=== PATIENT | female | born 1980 | race Two or more races ===

== ENCOUNTER 2021-06-17 10:40 | Outpatient (CLI) | payer OTHER ==
[~2021-06-17 10:40] MED LIST: COLACE100 MG PO; PERCOCET 5/3251 TAB PO
== END 2021-06-17 10:45 | disposition home or self-care (01) ==
LOC: PPH VACUNA 10:40
PROVIDERS: ATTEND Emergency Medicine Pediatric Emergency Medicine
DX: Z23 Encounter for immunization (principal)

== ENCOUNTER 2022-07-30 05:48 | Day surgery (SDC) | payer OTHER ==
[~2022-07-30] VITALS: Ht 167.6 cm; Wt 98.0 kg
[~2022-07-30 05:48] MED LIST changes: +TOPROL XL50 M1 PO
== END 2022-07-30 20:00 | disposition home or self-care (01) ==
LOC: CIR.AMB 05:48
PROVIDERS: ATTEND Surgery
DX: N60.91 Unspecified benign mammary dysplasia of right breast (principal); R92.1 Mammographic calcification found on diagnostic imaging of breast; N60.81 Other benign mammary dysplasias of right breast; Z91.013 Allergy to seafood; Z20.822 Contact with and (suspected) exposure to COVID-19
CPT/HCPCS: 19301; 19281; L8600

== ENCOUNTER 2022-11-28 11:24 | Inpatient (IN) | payer OTHER ==
[~2022-11-28] VITALS: Ht 198.1 cm; Wt 98.9 kg
--- NOTE | 2022-11-28 11:47 | NUR ---
PTE REFIERE QUE TIENE DOLOR PELVICO ANGELIKA
--- NOTE | 2022-11-28 12:54 | NUR ---
SE ORIENTA PTE SOBRE TX A SEGUIR, LA MISMA REFIERE ENTENDER. SE COLECTAN MUESTRAS DE LAB BAJO MEDIDAS ASEPTICAS Y SE ADMINISTRAN MEDS WANDA ORDEN MEDICA. PEND CT Y X-RAY. PTE MANEJADO POR YUE LOWERY
== END 2022-12-01 13:29 | disposition home or self-care (01) | DRG 737 ==
LOC: ER 11:24 → SURH 19:57 → SEC-K 19:57 → SURH 20:13
PROVIDERS: Obstetrics & Gynecology Gynecologic Oncology; ADMIT Internal Medicine; ATTEND Internal Medicine
PROC: BB24YZZ Computerized Tomography (CT Scan) of Bilateral Lungs using Other Contrast (ICD-10-PCS; 2022-11-28)
PROC: BB24ZZZ Computerized Tomography (CT Scan) of Bilateral Lungs (ICD-10-PCS; 2022-11-28)
PROC: BW21YZZ Computerized Tomography (CT Scan) of Abdomen and Pelvis using Other Contrast (ICD-10-PCS; 2022-11-28)
PROC: 0UT90ZZ Resection of Uterus, Open Approach (ICD-10-PCS; 2022-11-29)
PROC: 0DBW0ZZ Excision of Peritoneum, Open Approach (ICD-10-PCS; 2022-11-29)
PROC: 0UT70ZZ Resection of Bilateral Fallopian Tubes, Open Approach (ICD-10-PCS; 2022-11-29)
PROC: 07BD0ZZ Excision of Aortic Lymphatic, Open Approach (ICD-10-PCS; 2022-11-29)
PROC: 07BC0ZZ Excision of Pelvis Lymphatic, Open Approach (ICD-10-PCS; 2022-11-29)
PROC: 0DBU0ZZ Excision of Omentum, Open Approach (ICD-10-PCS; 2022-11-29)
PROC: 3E0F7SF Introduction of Other Gas into Respiratory Tract, Via Natural or Artificial Opening (ICD-10-PCS; 2022-11-29)
PROC: 0UT20ZZ Resection of Bilateral Ovaries, Open Approach (ICD-10-PCS; principal; 2022-11-29 12:45)
DX: C79.63 Secondary malignant neoplasm of bilateral ovaries (principal); C77.2 Secondary and unspecified malignant neoplasm of intra-abdominal lymph nodes; C78.6 Secondary malignant neoplasm of retroperitoneum and peritoneum; C77.8 Secondary and unspecified malignant neoplasm of lymph nodes of multiple regions; C77.5 Secondary and unspecified malignant neoplasm of intrapelvic lymph nodes; R18.8 Other ascites; C54.1 Malignant neoplasm of endometrium; N32.89 Other specified disorders of bladder; I10 Essential (primary) hypertension; Z85.3 Personal history of malignant neoplasm of breast